=== PATIENT | male | born 1990 | race Caucasian/White ===

== ENCOUNTER → 2017-04-03 | Outpatient (CLI) | payer BC ==
--- NOTE | 2017-04-03 18:07 | REP ---
LEFT KNEE SERIES COMPLETE: 04/03/2017: Clinical history: Left knee pain lateral aspect. Findings: Five views provided. Lateral view shows a small suprapatellar effusion. There is no patellar subluxation or dislocation on the sunrise view. No fracture. Medial and lateral compartments show no narrowing, loose body or osteochondral lesion. No avulsion. No focal bone abnormality. Impression: 1. A small suprapatellar effusion, otherwise negative left knee series for acute bony abnormality. Signed by Forrest Redmond MD 04/04/2017 05:21 P
== END ==
LOC: M ADAMS 13:21
PROVIDERS: ATTEND Physician Assistant Medical
DX: M25.462 Effusion, left knee (principal)

== ENCOUNTER → 2019-03-13 | Outpatient (CLI) | payer BC ==
[2019-03-16 09:23] LABS: HEPATITIS B SURFACE ANTIGEN NEGATIVE (NEGATIVE); HEPATITIS C VIRUS ABY INDEX 0.1 INDEX (<0.8); HIV 1&2 SCREEN CENTAUR NEGATIVE (NEGATIVE)
== END ==
LOC: M LABDRWAD 12:02
PROVIDERS: ATTEND Physician Assistant Medical
DX: Z02.5 Encounter for examination for participation in sport (principal)

== ENCOUNTER 2019-11-18 19:23 | Emergency (ER) | payer BC, SELFPAY ==
[~2019-11-18] VITALS: Ht 170.2 cm; Wt 76.9 kg
[2019-11-18] MEDS ORDERED: IBUPROFEN 600 MG TAB PO ONE (19:45)
[2019-11-18] MEDS ORDERED: ACETAMINOPHEN 325 MG TAB PO ONE (19:45)
[2019-11-18 20:46] LABS: INFLUENZA A AMPLIFICATION NEGATIVE (NEGATIVE); INFLUENZA B AMPLIFICATION POSITIVE (NEGATIVE)
[2019-11-18 21:12] VITALS: BP 120/67
== END 2019-11-18 21:14 | disposition home or self-care (01) ==
LOC: M ED 19:23
DX: J11.1 Influenza due to unidentified influenza virus with other respiratory manifestations (principal); Z88.0 Allergy status to penicillin